=== PATIENT | female | born 1940 | race Caucasian/White ===

== ENCOUNTER 2018-06-03 16:35 | Inpatient (IN) | payer MEDICARE, OTHER, SELFPAY ==
[2018-06-03] VITALS (12 sets, daily range): BP systolic 137–167; BP diastolic 54–75; PULSE 62–90; RESP 15–21; TEMP 36.5–36.7; O2SAT 93–100; BMI 24.9
--- NOTE | 2018-06-03 16:39 | DI.RAD.S_ITS ---
PROCEDURE: XR ANKLE RT MIN 3V INDICATIONS: broken ankle TECHNIQUE: 3 views of the ankle were acquired. COMPARISON: None. FINDINGS: Bones: Complex comminuted distal right tibial and fibular fractures with lateral angulation and distraction of the distal fragments. No involvement of the ankle mortise. Soft tissues: No radiopaque foreign bodies. Soft tissue swelling overlies the fracture site. IMPRESSION: Convex comminuted distal right tibial and fibular fractures with lateral angulation and distraction of the distal fragments. Dictated by: Solitario Woods M.D. on 06/03/2018 at 17:03 Approved by: Solitario Woods M.D. on 06/03/2018 at 17:04
[2018-06-03] MEDS: SODIUM CHLORIDE 0.9% 1,000 ML 1000 ML IV (17:04)
[2018-06-03] MEDS: MORPHINE 2 MG/ML INJ IV (17:04)
[2018-06-03] MEDS: PROPOFOL 200 MG/20 ML VIAL 65 MG IV (17:31)
--- NOTE | 2018-06-03 17:41 | DI.RAD.S_ITS ---
PROCEDURE: XR ANKLE RT 2V INDICATIONS: post reduction TECHNIQUE: 3 views of the ankle were acquired. COMPARISON: [facility], CR, XR ANKLE RT MIN 3V, 06/03/2018, 16:46. FINDINGS: Bones: There is slight interval improved alignment status post closed reduction of comminuted fractures of the distal tibial and fibular shafts. There is persistent lateral displacement of the distal components with decreased lateral angulation. There is slightly increased mild anterior angulation. Soft tissues: There is a new external cast. IMPRESSION: 1. Slightly improved alignment status post closed reduction of comminuted tibial and fibular shaft fractures with decreased lateral angulation but slightly increased anterior angulation. Dictated by: Osvaldo Jordan M.D. on 06/03/2018 at 18:55 Approved by: Osvaldo Jordan M.D. on 06/03/2018 at 18:57
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
[2018-06-03] MEDS: TET,DIPH,PERTUSS(ACELL),VAC/PF 0.5 ML SYRINGE IM (18:34)
[2018-06-03] MEDS: HYDROMORPHONE 0.5 MG INJ 1 MG IV (18:36)
[2018-06-03 20:09] LABS: Add Manual Diff / Slide Review NO; Basophils Percent Auto 0.3 % (0-2); Eosinophils Percent Auto 0.7 % (2-4); Hematocrit 35.9 % (36-46); Hemoglobin 12.1 g/dL (12.0-16.0); Lymphocytes Percent Auto 7.2 % (25-40); Mean Corpuscular HGB Conc 33.7 % (30-36); Mean Corpuscular Hemoglobin 32.1 PG (26-34); Mean Corpuscular Volume 95.5 fL (80-100); Monocytes Percent Auto 5.5 % (3-14); Neutrophils Absolute Auto 10100 /uL (3000-5900); Neutrophils Percent Auto 86.3 % (50-75); Platelet Count 214 X10^3/uL (150-400); Red Blood Cell Count 3.76 X10^6/uL (4.0-5.2); Red Cell Distribution Width 13.3 % (11.6-14.8); White Blood Cell Count 11.7 X10^3/uL (4.5-11.0)
[2018-06-03 20:20] LABS: BUN Creatinine Ratio 25.7 (6-22); Blood Urea Nitrogen 18 mg/dL (7-17); Calcium 8.5 mg/dL (8.4-10.2); Carbon Dioxide 27 mmol/L (22-32); Chloride 108 mmol/L (98-107); Estimated Glomerular Filt Rate > 60.0 mL/min (>60); Glucose 99 mg/dL (80-110); HEMOLYSIS < 15 (0-50); Potassium 3.7 mmol/L (3.4-5.1); Sodium 145 mmol/L (137-145)
[2018-06-03] MEDS: HYDROMORPHONE PCA 6 MG/30 ML PCA.VIAL IV (23:25)
[2018-06-04] VITALS (18 sets, daily range): BP systolic 105–143; BP diastolic 43–67; PULSE 18–80; RESP 10–85; TEMP 36.2–38.5; O2SAT 91–98; BMI 24.9
--- NOTE | 2018-06-04 | DI.CT.S_ITS ---
PROCEDURE: CT LE RT WO CON INDICATIONS: distal tibia fracture TECHNIQUE: Noncontrast 1-1.5 mm axial sections acquired from above the tibiotalar joint to the bottom of the calcaneus, with coronal and sagittal reformats. COMPARISON: None. FINDINGS: Image quality: Excellent. Bones: Comminuted oblique distal tibial diametaphyseal fracture with lateral displacement of the distal dominant fragment measuring approximately one shaft width there is also a comminuted fracture of the distal diaphysis of the fibula, with lateral displacement of the distal fibular fragment. Alignment at the tibiotalar joint appears anatomic. no definite widening of the tibiofibular syndesmosis. Additional nondisplaced hairline fracture seen at the base of the second metatarsal. Incidental chronic cystic changes seen throughout the midfoot. Presumed bone island within the talus. Soft tissues: There is diffuse circumferential subcutaneous edema and stranding IMPRESSION: Severely comminuted, displaced distal tibial and fibular fractures with lateral displacement of the distal fracture fragments as above. Additional nondisplaced hairline fracture seen at the base of the second metatarsal. Associated circumferential hindfoot soft tissue swelling. Dictated by: Sha Fermin M.D. on 06/04/2018 at 10:47 Approved by: Sha Fermin M.D. on 06/04/2018 at 10:55
--- NOTE | 2018-06-04 | DI.RAD.S_ITS ---
PROCEDURE: XR TIBIA FUBULA RT 2V INDICATIONS: tibial fracture TECHNIQUE: 2 views of the tibia and fibula were acquired. COMPARISON: 06/03/2018. FINDINGS: Bones: There is overlying cast material. Persistent convex comminuted oblique distal right tibial and fibular fractures with lateral and proximal distraction of the distal fragments. Soft tissues: No suspicious soft tissue calcifications or masses. IMPRESSION: Persistent complex distal right tibial and fibular fractures with lateral and proximal distraction of the distal fragments. Dictated by: Solitario Woods M.D. on 06/04/2018 at 8:37 Approved by: Solitario Woods M.D. on 06/04/2018 at 8:39
--- NOTE | 2018-06-04 | DI.RAD.S_ITS ---
PROCEDURE: XR FOOT RT MIN 3V INDICATIONS: fracture TECHNIQUE: 3 views of the foot were acquired. COMPARISON: [facility], CT, CT LE RT WO CON, 06/04/2018, 10:18. [facility], CR, XR TIBIA FIBULA RT 2V, 06/04/2018, 7:59. [facility], CR, XR ANKLE RT 2V, 06/03/2018, 17:44. [facility], CR, XR ANKLE RT MIN 3V, 06/03/2018, 16:46. FINDINGS: Evaluation of the osseous structures of the right foot is difficult, related to overlying clothing/splint material. This does result in difficulty evaluating the underlying bones for subtle abnormalities. Fractures of the distal tibia and fibula are not well seen. There appears to be widening of the Lisfranc interval. Degenerative changes of the metatarsophalangeal and tarsometatarsal joints are noted. No radiopaque foreign bodies are evident. IMPRESSION: 1. Apparent widening of the Lisfranc joint. Please correlate clinically for a Lisfranc fracture dislocation. 2. Fractures of the distal tibia and fibula. 3. Degenerative changes of the forefoot joints are more prominent involving the great toe. Dictated by: Fredi Costa M.D. on 06/04/2018 at 10:56 Approved by: Fredi Costa M.D. on 06/04/2018 at 11:02
--- NOTE | 2018-06-04 | DI.RAD.S_ITS ---
PROCEDURE: XR TIBIA FUBULA RT 2V INDICATIONS: POST OP RIGHT TIBIAL NAILING TECHNIQUE: 2 views of the tibia and fibula were acquired. COMPARISON: [facility], CR, XR TIBIA FIBULA RT 2V, 06/04/2018, 14:17. [facility], CR, XR TIBIA FIBULA RT 2V, 06/04/2018, 7:59. FINDINGS: Interval open reduction and internal fixation of the right distal fibular comminuted fracture bilateral buttress plate and transverse screws, as well as interval reduction internal fixation of the right distal tibial fracture by an intramedullary jerrica and both proximal and distal interlocking screws, resulting in improved alignment of the fracture fragments. Cutaneous chris projected over the proximal and distal tibial and there is overlying soft tissue swelling. Subcutaneous emphysema tracks along within the posterior calf. IMPRESSION: Improved alignment of the comminuted distal right fibular and tibial fractures after open reduction and internal fixation. Dictated by: Catrachito Garcia M.D. on 06/04/2018 at 21:12 Approved by: Catrachito Garcia M.D. on 06/04/2018 at 21:14
--- NOTE | 2018-06-04 | DI.RAD.S_ITS ---
PROCEDURE: XR TIBIA FUBULA RT 2V INDICATIONS: RIGHT TIBIAL NAILING TECHNIQUE: 2 views of the tibia and fibula were acquired. COMPARISON: [facility], CR, XR TIBIA FIBULA RT 2V, 06/04/2018, 7:59. FINDINGS: Intraoperative fluoroscopy was provided for the referring clinical service which documents the open reduction and internal fixation of the right distal tibial and fibular fractures by lateral buttress plates and transverse screws, as well as a placement of a right tibial intramedullary jerrica with both proximal and distal interlocking screws. There was interval percutaneous pinning of the tibial fracture fragments. There is overall improved alignment of the fracture fragments. IMPRESSION: Intraoperative fluoroscopy documenting the open reduction and internal fixation of the right distal tibial and fibular fractures as well as right tibial intramedullary jerrica placement. Please refer to the operative note for further details. Dictated by: Catrachito Garcia M.D. on 06/04/2018 at 21:09 Approved by: Catrachito Garcia M.D. on 06/04/2018 at 21:12
[2018-06-04] MEDS: HYDROMORPHONE PCA 6 MG/30 ML PCA.VIAL IV ×2 (06:33→14:24)
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
[2018-06-04] MEDS: LACTATED RINGERS 1,000 ML 42 ML IV ×2 (11:43→17:01)
[2018-06-04] MEDS: ONDANSETRON 4 MG/2 ML INJ IV (11:48)
--- NOTE | 2018-06-04 12:26 | PC.NURSE ---
Addendum entered by Jocelyne Jaime R.N. 06/04/18 14:45: Pt to OR via bed with IV and ABX. Spouse present and aware. IV/BOTTLING ATTENDANT heplocked for transfer. Original Note: Pt to surgery at approx. 1100 and now returned to room with surgery delayed. Pt given Zofran in Preop. No other meds given downstairs and Pt will go back down and directly to the OR when they are ready-expecting to be a couple of hours. IV and BOTTLING ATTENDANT hooked back up to Pt for use. Pt denies needs at this time and agrees to call for assistance as needed. Spouse is at the bedside.
[2018-06-04] MEDS: CEFAZOLIN 2 GM/100 ML FROZ.PIGGY IV ×2 (14:42→18:33)
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
--- NOTE | 2018-06-04 18:21 | SUR.OPER ---
FAMILY UPDATED VIA APARNA SOTO RN
[2018-06-04] MEDS: BUPIVACAINE 0.25% W/ EPI VIAL 30 ML INJ (19:50)
[2018-06-04] MEDS: fentaNYL 100 MCG/2 ML INJ 25 MCG IV ×3 (20:34→20:51)
[2018-06-04] MEDS: hydrOXYzine 50 MG/ML INJ 25 MG IM (20:37)
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
--- NOTE | 2018-06-04 21:57 | P.PN_ITS ---
Subjective Date Patient Seen: 06/04/18 Time Patient Seen: 21:53 Interval history: Postop day 0 Right tibia and fibula ORIF and intramedullary nailing right tibia Exam under anesthesia and closed treatment 2nd metatarsal base fracture Exam Vital Signs (past 8 hours): - 06/04/18 20:12 06/04/18 20:17 06/04/18 20:22 Temperature 97.1 F L Pulse Rate 76 77 78 Respiratory Rate 14 15 15 Blood Pressure 112/43 L 113/46 L 119/57 L Pulse Oximetry 95 94 94 06/04/18 20:27 06/04/18 20:42 06/04/18 20:57 Temperature Pulse Rate 74 71 70 Respiratory Rate 16 16 10 L Blood Pressure 117/44 L 133/61 140/61 Pulse Oximetry 96 93 94 06/04/18 21:02 06/04/18 21:28 06/04/18 21:50 Temperature 98.9 F 100.3 F H Pulse Rate 76 18 L 70 Respiratory Rate 11 L 85 H 18 Blood Pressure 143/49 H 105/55 L 125/59 L Pulse Oximetry 95 94 95 Fraction of Inspired Oxygen 21 Oxygen Delivery Method Nasal Cannula Oxygen Flow Rate 4 Objective Labs Result Diagrams: 06/03/18 20:00 06/03/18 20:00 Assessment & Plan Post-op Postoperative Procedures Operation Date: 06/04/18 12:00 Actual Procedures Side Surgeon p intermedullary nailing right tibial/fibula fracture, exam under anesthesia right foot Right Velia Sahu MD Plan: 1. Right lower extremity toe-touch or flatfoot weight-bearing (for balance only ) 2. Start Lovenox postop day 1--40 mg Lovenox daily times 14 days 3. Follow-up with Dr. Sahu at [facility] in 1 week for wound check 4. Work with physical therapy and occupational therapy. If doing well and completed her postop antibiotics may discharge home possibly tomorrow. Otherwise anticipate discharge Friday/based on medical recovery. 5. Patient displayed low tolerance for narcotics preoperatively--will start with [place] for pain management 1-2 tablets if she needs something stronger may move up but go slow 6. Colace for bowel regimen 7. SCDs on left while in the hospital Quality VTE Deep Vein Thrombosis/Pulmonary Embolism Present on Admission: No
[2018-06-05] VITALS (9 sets, daily range): BP systolic 100–156; BP diastolic 56–73; PULSE 69–81; RESP 16–18; TEMP 36.6–36.9; O2SAT 92–98
[2018-06-05] MEDS: LACTATED RINGERS 1,000 ML 125 ML IV ×2 (01:28→06:30)
[2018-06-05] MEDS: CEFAZOLIN 2 GM/100 ML FROZ.PIGGY IV ×2 (02:47→10:21)
[2018-06-05 05:30] LABS: Hematocrit 28.9 % (36-46); Mean Corpuscular HGB Conc 34.5 % (30-36); Mean Corpuscular Hemoglobin 32.9 PG (26-34); Mean Corpuscular Volume 95.2 fL (80-100); Platelet Count 162 X10^3/uL (150-400); Red Blood Cell Count 3.03 X10^6/uL (4.0-5.2); Red Cell Distribution Width 12.7 % (11.6-14.8); White Blood Cell Count 7.3 X10^3/uL (4.5-11.0)
[2018-06-05] MEDS: HYDROCODONE/ACET 5/325 TABLET 1 TAB PO ×2 (06:37→21:56)
--- NOTE | 2018-06-05 08:24 | PC.NURSE ---
Addendum entered by Michelle Bhatt R.N. 06/05/18 12:31: PAIN - at lunch, given tramadol 50mg po for pain 2 on scale 0/10 for afternoon phys therapy. Original Note: AM NOTE - alert, sitting upright speaking to spouse at bedside, states pain 1 on scale 0/10, does not like how the earlier norco made her feel, discussed medications, dosages, rle elev pillow support, splint, w/tanisha wrap over cdi, + sensation and toes are pink, able wiggle easily, ra 94%, denies nausea and feels hungry this am, has passed a little flatus.
[2018-06-05] MEDS: DOCUSATE 100 MG CAPSULE PO ×2 (09:08→21:56)
[2018-06-05] MEDS: ENOXAPARIN 40 MG/0.4 ML SYRINGE SUBCUT (09:08)
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
--- NOTE | 2018-06-05 10:27 | PM.PNPO.1 ---
Subjective Date Patient Seen: 06/05/18 Interval history: Patient seen bedside s/p R. tibial nail with ORIF r. ankle POD #[address] Sahu. Patient is doing well, she complains of right knee and groin pain. She denies CP, SOB, or N/V. Pain is well controlled, but does not like the side effects of the hydrocodone/APAP. Exam Vital Signs (past 8 hours): - 06/05/18 04:38 06/05/18 07:45 06/05/18 09:35 Temperature 98.0 F 97.9 F Pulse Rate 78 77 Respiratory Rate 16 16 Blood Pressure 100/73 133/57 L Pulse Oximetry 98 97 94 Fraction of Inspired Oxygen 21 Oxygen Delivery Method Room Air Oxygen Flow Rate 4 Narrative Exam Narrative: WDWN NAD A&Ox4. RLE splint is clean dry and intact with no visible drainage. Cap refill <2sec and patient is NVI in this extremity. Objective Labs Result Diagrams: 06/05/18 05:16 06/03/18 20:00 Labs: Laboratory Results - last 24 hr 06/05/18 05:16 WBC 7.3 RBC 3.03 L Hgb 10.0 L Hct 28.9 L MCV 95.2 MCH 32.9 MCHC 34.5 RDW 12.7 Plt Count 162 Assessment & Plan Post-op Postoperative Procedures Operation Date: 06/04/18 12:00 Actual Procedures Side Surgeon p intermedullary nailing right tibial/fibula fracture, exam under anesthesia right foot Right Velia Sahu MD 1. Continue with PT 2. Toe touch WB only for balance/transfer 3. Switch pain medication to tramadol to see if side effects are more tolerable 4. D/c home in AM. Quality VTE Deep Vein Thrombosis/Pulmonary Embolism Present on Admission: No
[2018-06-05] MEDS: TRAMADOL 50 MG TABLET PO ×2 (12:27→17:10)
--- NOTE | 2018-06-05 15:49 | PT.IPTN ---
Current Diagnoses Unspecified fracture of lower end of right tibia, initial encounter for closed fracture (06/03/18) Surgery Performed Operation Date: 06/04/18 12:00 Actual Procedures p intermedullary nailing right tibial/fibula fracture, exam under anesthesia right foot(Right) - Velia Sahu MD Physical Therapy Treatment Note M2 PT-IP Current Condition Start: 06/05/18 12:19 Freq: NEEDED Status: Active Protocol: Document 06/05/18 09:41 MDD (Rec: 06/05/18 12:30 MDD [id number]) Physical Therapy Current Condition Current Condition Evaluation Date 06/05/18 Treatment Diagnosis s/p R ankle ORIF Onset Date 06/04/18 Precautions Other Precautions perez catheter Weight Bearing Status Weight Bearing Status Touch Down Weight Bearing Allowed Weight Bearing Amount (enter % *only for balance with or #) (%) transfers M3 PT-IP Subjective Start: 06/05/18 12:19 Freq: NEEDED Status: Active Protocol: Document 06/05/18 15:49 MDD (Rec: 06/05/18 16:51 MDD [email or web address]) Subjective Physical Therapy Visit Type Type Treatment Note Visit Start Time 15:06 Visit Stop Time 15:49 Total Visit Minutes 43 Notes Pt's went to [facility] this am and got a shower chair, w/c and FWW. Number of ASSISTANT TEACHING PROFESSOR Visits 0 Therapy Pain Assessment Pain When Pain Assessed At Rest Pain Present Pain Present Denied Pain M4 PT-IP Mobility and Gait Start: 06/05/18 12:19 Freq: NEEDED Status: Active Protocol: Document 06/05/18 15:49 MDD (Rec: 06/05/18 16:51 MDD [id number]) PT-Bed Mobility Assessment Rolling Type of Rolling Roll to Left Level of Assist Independent Supine to Sit Supine to Sit Standby Assistance Bedrails Sit to Supine Sit to Supine Independent Scooting Scooting to Edge of Bed Independent Scooting Up and Down in Bed Independent PT-Transfer Assessment Sit to and From Stand Sit to and from Stand Contact Guard Assistance Equipment Transfer Assistive Device Gait Belt Front Wheeled Walker Transfers Transfer Destination Wheelchair Transfer Technique Stand Step Pivot Transfer Ability Level of Assist Contact Guard Assistance Comments Mobility Comments Pt demonstrating good compliance with TTWB during transfers, needs some cueing for walker placement. Stair Climbing Assessment Evaluation Level of Assist On Stairs Contact Guard Assistance Devices Stair Climbing Assistive Devices Axillary Crutches Left Railing Technique/Endurance Stair Climbing Direction Ascend and Descend Stair Climbing Technique Step to Step Number of Steps Climbed 3 Query Text: Stair Climbing Set # Repetitions (reps) 1 Comments Stair Climbing Comments Pt able to do steps with CGA using single crutch and L railing. She may be placing a little too much weight on R LE, but was unable today to attempt with NWB. PT-Balance Assessment Sitting Balance and Reactions Static Sitting Balance Ability Normal Dynamic Sitting Balance Ability Normal Standing Balance and Reactions Static Standing Balance Ability Good Dynamic Standing Balance Ability Fair M5 PT-IP Objective Assessments Start: 06/05/18 12:19 Freq: NEEDED Status: Active Protocol: Document 06/05/18 09:41 MDD (Rec: 06/05/18 12:30 MDD [id number]) Orientation Orientation/Cognition Level of Alertness Alert Orientation Name Age Birthday Month Date Year Day of Week Place Situation Language Function Ability No Deficits Noted Safety Awareness Understands Safety Issues Memory Description No Deficits Noted Gross Range of Motion Lower Extremity ROM Assessment Within Functional Limits Strength Lower Extremity Strength Assessment Within Functional Limits Coordination Assessment Gross Coordination Gross Coordination WNL Sensation Assessment Sensation Gross Sensation WNL Light Touch Intact M6 PT-IP Treatment Start: 06/05/18 12:19 Freq: NEEDED Status: Active Protocol: Document 06/05/18 15:49 MDD (Rec: 06/05/18 16:51 MDD [email or web address]) Physical Therapy Treatment Education Education Provided Weight Bearing Status Safety M7 PT-IP Assessment and Plan Start: 06/05/18 12:19 Freq: NEEDED Status: Active Protocol: Document 06/05/18 15:49 MDD (Rec: 06/05/18 16:51 MDD [email or web address]) PT Summary Assessment and Plan Potential Rehabilitation Potential Good Status of Condition at Evaluation Stable Summary Impairments Pain Bed Mobility Transfers Gait Activity Tolerance Progress Towards Goals Progressing Toward Goals Assessment Summary Pt demonstrates good LE strength and balance maintaining TTWB R LE during transfers this day with CGA. She did require some assist for bed mobility d/t pain in R knee/ankle. She should benefit from continued inpatient therapy to maximize function prior to d/c home. If she demonstrates ability to safely ascend/descend steps while maintaining WB status, will likely be safe to d/c home with proper acquisition of appropriate DME. Goals Bed Mobility Goal Independent Transfer Goal Independent Gait Goal Independent Gait Distance 5 feet Other Goals Ascend/descend 4 steps with single crutch and single railing. Days to Meet Goals 2 Frequency of Treatment Frequency Of Treatment Twice a Day Treatment Plan Physical Therapy Treatment Plan Bed Mobility Training Transfer Training Gait Training Therapeutic Exercise Other Recommendations and Next Treatment Trial stairs using single Focus crutch and railing. Recommendations To Nursing Amount of Assist Needed 1 Person Assist Discharge Recommendations PT Discharge Recommendations Home with Assistance Equipment Needed for Home Before Pt will need a FWW, shower Discharge chair and W/C for safe d/c home. Discussed with her who will be going to [facility] today to see what he can get. Will plan on dispensing crutches in hospital.
--- NOTE | 2018-06-05 21:02 | PC.NURSE ---
Patient refused perez catheter removal; This RN did not remove. Patient states she'd be willing to try to have it removed tomorrow AM.
[2018-06-06 05:03] VITALS: BP 139/61; PULSE 68; RESP 16; TEMP 36.3; O2SAT 90
[2018-06-06 07:30] VITALS: BP 147/66; PULSE 71; RESP 18; TEMP 36.6; O2SAT 93
--- NOTE | 2018-06-06 07:39 | PM.DS.1 ---
History of Present Illness Date Patient Seen: 06/06/18 Chief complaint: Rt broken manuelitoel Narrative: Patient was seen status post tibial nailing and ORIF for right ankle postop day 2. She is doing well her pain is well controlled. She is tolerating the tramadol better than the hydrocodone. She is ready for discharge. She did have some current concerns about some seepage through the splint. Discharge Providers Date of admission: 06/03/18 18:25 Primary care physician: Andres Pascual MD Consults: 06/03/18 20:03 Consult to Orthopedic Surgery Routine Comment: Consulting Provider: Arelis Samuels Reason for consultation: admission, surgery Has provider been notified: Yes 06/04/18 18:09 Consult to Respiratory Therapy Evaluate & Treat Comment: Physician Instructions: Evaluate and treat 06/04/18 21:43 Consult to Discharge Planning Routine Comment: Consult to Physical Therapy Evaluate & Treat Comment: RLE flat foot for balance or TTWB Physician Instructions: Evaluate and Treat Consult to Respiratory Therapy Evaluate & Treat Comment: Physician Instructions: Evaluate and treat Discharge provider: Janeth Li PA-C Summary Discharge Diagnosis: Right ankle fracture Hospital Course: Patient was admitted to the hospital after sustaining a distal tibia fracture as well as a lateral malleolus fracture. She was taken to the OR on 06/04/2018 for tibial nailing and ORIF of the fibula. Patient tolerated the procedure well with no complications. She was then transitioned back to the acute care floor and seen by Physical therapy who recommended she be discharged home. Patient stable ready for discharge on 06/06/2018. Status at Discharge Cognitive/behavioral status at discharge: Alert and oriented x4 Functional status at discharge: uses cane/walker Overall status at discharge: patient is progressing back to baseline Time Spent with Patient Less than 30 minutes Exam Vital Signs (past 8 hours): - 06/06/18 05:03 Temperature 97.3 F L Pulse Rate 68 Respiratory Rate 16 Blood Pressure 139/61 Pulse Oximetry 90 L Fraction of Inspired Oxygen 21 Oxygen Delivery Method Room Air Oxygen Flow Rate 0 Narrative Exam Narrative: Well-developed well-nourished no acute distress. Alert and oriented x3. Right ankle splint is intact with some mild bleeding at the heel. Ede bandage was removed area reinforced with ABD pads and then rewrapped with an Ede. She is neurovascularly intact in this extremity she has full range of motion of the knee. Objective Labs Result Diagrams: 06/05/18 05:16 06/03/18 20:00 Discharge Plan Discharge Plan Patient Disposition: Home Provider Discharge Instructions Diet: Diet as Tolerated Activity: Nonweightbearing on affected ankle. Use crutches, walker, or rolling knee walker to ambulate. Cold/Heat Therapy: Apply ice for 20 minutes at a time to surgical site at least hourly while awake. Skin/Wound/Dressing Care Report to your healthcare provider any signs of infection, such as:: chills, fever, night sweats, increased pain and unusual drainage Dressing: Keep splint on and clean, dry, and intact. Discharge Data Primary Care Provider: Andres Pascual Attending Provider: Arelis Samuels Admit Date/Time: 06/03/18 18:25 Quality VTE Deep Vein Thrombosis/Pulmonary Embolism Present on Admission: No
[2018-06-06] MEDS: TRAMADOL 50 MG TABLET PO (07:53)
[2018-06-06] MEDS: DOCUSATE 100 MG CAPSULE PO (07:54)
--- NOTE | 2018-06-06 08:14 | PC.NURSE ---
Addendum entered by Mihcelle Bhatt R.N. 06/06/18 12:22: /DC - pt ambul br voided, hat missed, adequate output observed, ret chair for quick lunch, reviewed the dc instructions, scripts and paperwork provided, belongings gathered, no items in pharmacy or safe, tsf to wc, and sensory scientist escorted to spouse's car. Original Note: Addendum entered by Michelle Bhatt R.N. 06/06/18 09:58: INTEG/DC - pt has leakage of serosang medially thru tanisha wrap, Janeth WATT in and removed tanisha wrap, reinforced with abd pads and rewrapped, instructions were provided to pt, spouse for care at home, abd pads and tanisha wrap provided for weekend, lovenox instructions provided and pt demonstrated own injection. Original Note: AM NOTE - alert, reading, req pain medication, discussed meds and prefers tramadol this am and given 50mg w/yogurt and crackers, discussed perez cath, agreed to removal, balloon deflated and dc'd w/o difficulty, addressed constipation and narcotics, laxatives here and at home, given colace and prune juice this am, ra 92%, enc freq use IS, rle elev w/pillow support, tanisha wrap over splint cdi, toes pink and wiggles easily, + sensation.
[2018-06-06 08:19] VITALS: O2SAT 92
[2018-06-06] MEDS: ENOXAPARIN 40 MG/0.4 ML SYRINGE SUBCUT (09:52)
--- NOTE | 2018-06-06 10:45 | PT.IPTN ---
Current Diagnoses Unspecified fracture of lower end of right tibia, initial encounter for closed fracture (06/03/18) Surgery Performed Operation Date: 06/04/18 12:00 Actual Procedures p intermedullary nailing right tibial/fibula fracture, exam under anesthesia right foot(Right) - Velia Sahu MD Physical Therapy Treatment Note M2 PT-IP Current Condition Start: 06/05/18 12:19 Freq: NEEDED Status: Active Protocol: Document 06/05/18 09:41 MDD (Rec: 06/05/18 12:30 MDD [id number]) Physical Therapy Current Condition Current Condition Evaluation Date 06/05/18 Treatment Diagnosis s/p R ankle ORIF Onset Date 06/04/18 Precautions Other Precautions perez catheter Weight Bearing Status Weight Bearing Status Touch Down Weight Bearing Allowed Weight Bearing Amount (enter % *only for balance with or #) (%) transfers M3 PT-IP Subjective Start: 06/05/18 12:19 Freq: NEEDED Status: Active Protocol: Document 06/06/18 10:45 GGD (Rec: 06/06/18 12:29 GGD [id number]) Subjective Physical Therapy Visit Type Type Treatment Note Visit Start Time 10:00 Visit Stop Time 10:45 Total Visit Minutes 45 Number of PHOTO TUBE ASSEMBLER Visits 1 Physical Therapy Visit Comments Patient Comments Pt states she hopes to go home today. Therapy Pain Assessment Pain When Pain Assessed At Rest Pain Present Pain Present Denied Pain M4 PT-IP Mobility and Gait Start: 06/05/18 12:19 Freq: NEEDED Status: Active Protocol: Document 06/06/18 10:45 GGD (Rec: 06/06/18 12:29 GGD [id number]) PT-Bed Mobility Assessment Rolling Type of Rolling Roll to Left Level of Assist Independent Supine to Sit Supine to Sit Standby Assistance Bedrails Sit to Supine Sit to Supine Independent Scooting Scooting to Edge of Bed Independent Scooting Up and Down in Bed Independent PT-Transfer Assessment Sit to and From Stand Sit to and from Stand Contact Guard Assistance Equipment Transfer Assistive Device Gait Belt Front Wheeled Walker Transfers Transfer Destination Wheelchair Transfer Technique Stand Step Pivot Transfer Ability Level of Assist Contact Guard Assistance Comments Mobility Comments PT needs cueing for walker placement. Stair Climbing Assessment Evaluation Level of Assist On Stairs Contact Guard Assistance Devices Stair Climbing Assistive Devices Axillary Crutches Left Railing Technique/Endurance Stair Climbing Direction Ascend and Descend Stair Climbing Technique Step to Step Number of Steps Climbed 3 Query Text: Stair Climbing Set # Repetitions (reps) 1 Comments Stair Climbing Comments Pt needed cues for stair training. She was unable to do NWB. M5 PT-IP Objective Assessments Start: 06/05/18 12:19 Freq: NEEDED Status: Active Protocol: Document 06/05/18 09:41 MDD (Rec: 06/05/18 12:30 MDD [id number]) Orientation Orientation/Cognition Level of Alertness Alert Orientation Name Age Birthday Month Date Year Day of Week Place Situation Language Function Ability No Deficits Noted Safety Awareness Understands Safety Issues Memory Description No Deficits Noted Gross Range of Motion Lower Extremity ROM Assessment Within Functional Limits Strength Lower Extremity Strength Assessment Within Functional Limits Coordination Assessment Gross Coordination Gross Coordination WNL Sensation Assessment Sensation Gross Sensation WNL Light Touch Intact M6 PT-IP Treatment Start: 06/05/18 12:19 Freq: NEEDED Status: Active Protocol: Document 06/06/18 10:45 GGD (Rec: 06/06/18 12:29 GGD [id number]) Physical Therapy Treatment Exercises Exercises Gluteal Sets Quad Sets Straight Leg Raises Seated Knee Flexion/Extension Education Education Provided Weight Bearing Status Safety Equipment Issued Equipment Type and Company crutches Other Treatments Other Treatment Performed Hip abd with Level 1 band, hip add pillow squeeze M7 PT-IP Assessment and Plan Start: 06/05/18 12:19 Freq: NEEDED Status: Active Protocol: Document 06/06/18 10:45 GGD (Rec: 06/06/18 12:29 GGD [id number]) PT Summary Assessment and Plan Summary Assessment Summary Pt was safe with bed mobility and transfers. She unable to maintain TTWB with stairs. She would benifit from continue threapy to progress stair training with TTWB. Frequency of Treatment Frequency Of Treatment Twice a Day Treatment Plan Physical Therapy Treatment Plan Bed Mobility Training Transfer Training Gait Training Therapeutic Exercise Other Recommendations and Next Treatment Trial stairs using single Focus crutch and railing. Recommendations To Nursing Amount of Assist Needed 1 Person Assist Discharge Recommendations PT Discharge Recommendations Home with Assistance
--- NOTE | 2018-06-06 15:42 | CM.DPC ---
DC Note: Pt cleared for return home w/supportive spouse today, pt eager to get home. Aware and agreeable to DCP. No barriers to safe DC home. JW
== END 2018-06-06 12:45 | disposition home or self-care (01) | DRG 494 ==
LOC: ED 18:15 → AC 18:26
PROVIDERS: Orthopaedic Surgery Foot and Ankle Surgery; Admitting Provider Orthopaedic Surgery; Emergency Provider Emergency Medicine; PCP Internal Medicine; Visit Provider Orthopaedic Surgery
PROC: 0QSG06Z Reposition Right Tibia with Intramedullary Internal Fixation Device, Open Approach (ICD-10-PCS; CPT 27759; principal; 2018-06-04 12:00)
DX: M80.071A Age-related osteoporosis with current pathological fracture, right ankle and foot, initial encounter for fracture (principal); M80.061A Age-related osteoporosis with current pathological fracture, right lower leg, initial encounter for fracture; Y92.814 Boat as the place of occurrence of the external cause; E78.5 Hyperlipidemia, unspecified
CPT/HCPCS: 27825; 36415; 73590; 73600; 73610; 73630; 73700; 76001; 80048; 85025; 85027; 90471; 93005; 93010; 94760; 94770; 96361; 96374; 96375; 97116; 97161; 97530; 99152; 99284; 99285; 90715; J0690; J1100; J1170; J1650; J2250; J2270; J2405; J2704; J3010; J3410

== ENCOUNTER → 2019-03-11 10:04 | Outpatient (CLI) | payer MEDICARE, OTHER, SELFPAY ==
[2018-06-03 18:27] VITALS: BMI 24.9
[2019-03-11 11:54] LABS: BUN Creatinine Ratio 23.8 (6-22); Blood Urea Nitrogen 19 mg/dL (7-17); Calcium 9.3 mg/dL (8.4-10.2); Carbon Dioxide 27 mmol/L (22-32); Chloride 104 mmol/L (98-107); Cholesterol 188 mg/dL (140-199); Estimated Glomerular Filt Rate > 60.0 mL/min (>60); Glucose 86 mg/dL (80-110); HDL Cholesterol 55 mg/dL (40-60); HEMOLYSIS 24 (0-50); LDL Cholesterol Calculated 101 mg/dL (<100); Potassium 4.3 mmol/L (3.4-5.1); Sodium 140 mmol/L (137-145); Triglycerides 158 mg/dL (35-150)
== END ==
PROVIDERS: PCP Internal Medicine; Visit Provider Internal Medicine
DX: E78.2 Mixed hyperlipidemia (principal); R03.0 Elevated blood-pressure reading, without diagnosis of hypertension
CPT/HCPCS: 36415; 80048; 80061

== ENCOUNTER → 2019-03-17 08:55 | Outpatient (CLI) | payer MEDICARE, OTHER, SELFPAY ==
[2018-06-03 18:27] VITALS: BMI 24.9
--- NOTE | 2019-03-17 | DI.MG.S_ITS ---
BILATERAL DIGITAL SCREENING MAMMOGRAM 3D/2D WITH CAD POST LUMPECTOMY: 03/17/2019 CLINICAL: Routine screening. Personal history of left breast cancer. Family history of breast cancer. Comparison is made to exams dated: 01/24/2018 mammogram, 12/17/2016 mammogram, and 12/15/2015 mammogram - [facility]. There are scattered fibroglandular elements in both breasts. Current study was also evaluated with a Computer Aided Detection (CAD) system. There are benign post operative findings in the left breast. No significant masses, calcifications, or other findings are seen in either breast. There has been no significant interval change. IMPRESSION: There is no mammographic evidence of malignancy. A 1 year screening mammogram is recommended. This exam was interpreted at Station ID: [id number]. NOTE: For mammograms, a report in lay terms will be sent to the patient. Approximately 15% of breast malignancies will not be visualized mammographically. In the management of a palpable breast mass, a negative mammogram must not discourage biopsy of a clinically suspicious lesion. Electronically Signed By: Osvaldo schaeffer/bailee:03/17/2019 16:40:02 letter sent: Normal Exam ACR BI-RADS Category 2: Benign Finding(s) [id number]
== END ==
PROVIDERS: PCP Internal Medicine; Visit Provider Internal Medicine
DX: Z12.31 Encounter for screening mammogram for malignant neoplasm of breast (principal); Z85.3 Personal history of malignant neoplasm of breast; Z80.3 Family history of malignant neoplasm of breast; M81.0 Age-related osteoporosis without current pathological fracture; Z78.0 Asymptomatic menopausal state
CPT/HCPCS: 77063; 77067; 77080

== ENCOUNTER 2019-09-15 14:39 | Emergency (ER) | payer MEDICARE, OTHER, SELFPAY ==
[2018-06-03 18:27] VITALS: BMI 24.9
[2019-09-15 14:41] VITALS: BP 183/77; PULSE 66; RESP 20; TEMP 36.7; O2SAT 100
[2019-09-15 14:50] VITALS: BP 183/77; PULSE 66; RESP 20; TEMP 36.7; O2SAT 100
--- NOTE | 2019-09-15 15:04 | DI.CT.S_ITS ---
PROCEDURE: CT HEAD/BRAIN WO CON INDICATIONS: memory issues, foggy TECHNIQUE: Noncontrast 4.5 mm thick angled axial sections acquired from the foramen magnum to the vertex, with coronal and sagittal reformats. For radiation dose reduction, the following was used: automated exposure control, adjustment of mA and/or kV according to patient size. COMPARISON: None. FINDINGS: Image quality: Excellent. CSF spaces: Basal cisterns are patent. No extra-axial fluid collections. Ventricles are normal in size and shape. Brain: No midline shift. No intracranial masses or hemorrhage. Mcdaniels-white matter interface is normal. Mild periventricular hypodensity most consistent with chronic microvascular ischemic change. Skull and face: Calvarium and visualized facial bones are intact, without suspicious lesions. Sinuses: Visualized sinuses and mastoids are clear. IMPRESSION: No acute intracranial abnormality. Periventricular hypodensities most compatible with mild chronic microvascular ischemic change. Comment: Findings were discussed with Yazmin Velasquez at the time of dictation. Dictated by: Bert Clarke M.D. on 09/15/2019 at 15:21 Approved by: Bert Clarke M.D. on 09/15/2019 at 15:24
--- NOTE | 2019-09-15 15:04 | DI.RAD.S_ITS ---
PROCEDURE: XR CHEST 1V INDICATIONS: foggy, memory issues TECHNIQUE: One view of the chest was acquired. COMPARISON: None. FINDINGS: Surgical changes and devices: Surgical clips in the left axilla and left breast. Lungs and pleura: The coarse interstitial markings diffusely. Lungs are otherwise clear. No pleural effusions or pneumothorax. Mediastinum: Mediastinal contours appear normal. Heart size is normal. Bones and chest wall: No suspicious bony lesions. Overlying soft tissues appear unremarkable. IMPRESSION: 1. Diffusely coarse interstitial markings without other findings of central venous congestion. This may represent fibrotic or emphysematous change. 2. No acute process. Dictated by: Ngozi Jean M.D. on 09/15/2019 at 16:34 Approved by: Ngozi Jean M.D. on 09/15/2019 at 16:35
--- NOTE | 2019-09-15 15:16 | ED.NEUROSD ---
HPI - Neuro Symptoms/Deficit General Chief Complaint: Neuro Symptoms/Deficit Stated Complaint: sudden loss of memory Time Seen by Provider: 09/15/19 15:04 Source: patient and family Mode of arrival: Ambulatory Limitations: no limitations History of Present Illness HPI Narrative: This is a 79-year-old female, who comes to the emergency department with a complaint of since she a vague feeling that she could not remember what to do. Patient states she was at a jain meeting, she felt like everything was vague is how she describes it. She states that she was able drive, she is able turn off her alarm to get in her house she was able to call her and let him know something did seem right. She states she waited several hours but felt like it did not resolve. She describes it as not so much a loss of memory as having trouble deciding what to do for Hans, having trouble deciding how or what to look for dinner or how to transport and deliver some point as. They all are described as short-term tasks that she is having trouble figuring out how to resolve but she is able to do other tasks without issue. She denies headache, no vision changes, no issues with word loss or expressive aphasia, no numbness, no weakness, no chest pain or shortness of breath. No nausea, no vomiting no issues with bowel movements or urination. Patient takes medication for cholesterol, no aspirin daily. No history of strokes or TIAs. She had a fracture to her right leg with jerrica and hardware placed. No tobacco, occasional line none today. No illicit. Dr. Mace is his primary care. Patient is , at bedside and states that she does not seem to have memory issues so much is trouble making decisions about task that she want to perform. On Anticoagulants: No Related Data Home Medications Medication Instructions Recorded Confirmed Calcium Source 1,500 mg PO DAILY 09/15/19 09/15/19 cholecalciferol (vitamin D3) 1,000 unit PO DAILY 09/15/19 09/15/19 [Vitamin D3] raloxifene 60 mg PO DAILY 09/15/19 09/15/19 simvastatin 20 mg PO QPM 09/15/19 09/15/19 Previous Rx's Medication Instructions Recorded cephalexin [Keflex] 500 mg PO BID #10 cap 09/15/19 Allergies Allergy/AdvReac Type Severity Reaction Status Date / Time No Known Drug Allergies Allergy Verified 02/09/18 10:56 Review of Systems Review of Systems ROS Unobtainable: All systems reviewed & are unremarkable except as noted in HPI and below Patient History Medical History (Updated 09/15/19 @ 17:09 by Yazmin Velasquez DO) Dyslipidemia (Acute) Healthy adult (Acute) Social History household members: spouse Smoking Status: Never smoker Smoking Status: Never smoker alcohol intake frequency: holidays/special occasions only Substance Use Type: does not use Exam Narrative Exam Narrative: GEN: well nourished, well appearing female, alert and oriented x 3, patient appears to be in mild distress. patient is slightly anxious. HEENT: Atraumatic, pupils are equal round reactive to light, extraocular movements are intact, nares are clear, TMs are clear with no fluid, there is no conjunctival pallor. Throat is clear without any exudates, erythema, tonsillar enlargement or uvular deviation, no facial droop. HEART: Regular rate and rhythm without murmur, clicks, rubs. No carotid bruits, pulses are equal in upper and lower extremities LUNGS:Lungs clear to auscultation, no wheezes, rales, crackles, chest moves symmetrically ABD:bowel sounds normal, soft, non-tender, no guarding, rebound, rigidity, no masses noted, no hepatosplenomegaly :No CVA tenderness MSCL: Non-tender, no muscle atrophy, muscles strength 5/5 upper and lower extremities, full range of motion, normal gait NEURO:CN 2-12 intact, sensation normal, reflexes 2/4 upper and lower extremities. finger nose finger test normal, heel fisher test normal. SKIN: no rash, no petechiae. Initial Vital Signs Initial Vital Signs: Vital Signs Temperature 98.1 F 09/15/19 14:41 Pulse Rate 66 09/15/19 14:41 Respiratory Rate 20 09/15/19 14:41 Blood Pressure 183/77 H 09/15/19 14:41 Pulse Oximetry 100 09/15/19 14:41 Scores NIH Stroke Scale Level of Conciousness: Alert, keenly responsive Ask month/age: Answers both questions correctly. Open/close eyes, close hand: Performs both tasks correctly Best gaze horizontal: Normal Visual pandya: No visual loss Facial palsy: Normal symetrical movement Left arm drift: No drift for full 10 sec Right arm drift: No drift for full 10 sec Left leg drift: No drift for full 10 sec Right leg drift: No drift for full 10 sec Limb ataxia: Absent Sensory on face/arms/legs: Normal, no sensory loss Best language: No aphasia, normal Dysarthria: Normal Extinction or inattention: No abnormality Total NIH Stroke scale score: 0 Course Orders Ordered: ED Orders 09/15/19 15:04 CT head/brain wo con Stat XR chest 1V Stat 09/15/19 15:24 Basic Metabolic Panel Stat Complete Blood Count AUTO DIFF Stat Partial Thromboplastin Time Stat Prothrombin Time INR Stat 09/15/19 15:50 Urine Culture Stat Urine Drug Screen, Rapid Stat Urine Microscopic Stat 09/15/19 15:54 CT angio head and neck Stat Discontinued Medications Aspirin (Aspirin Chew) 324 mg PO NOW ONE Stop: 09/15/19 15:41 Last Admin: 09/15/19 16:29 Dose: 324 mg Documented by: MIKE Sodium Chloride (Normal Saline 0.9%) 1,000 mls @ 150 mls/hr IV CONT ROSA Last Admin: 09/15/19 16:29 Dose: 150 mls/hr Documented by: MIKE Vital Signs Vital signs: Vital Signs - 8 hr 09/15/19 14:41 09/15/19 14:50 09/15/19 15:17 Temperature 98.1 F 98.1 F Pulse Rate 66 66 64 Respiratory Rate 20 20 17 Blood Pressure 183/77 H 183/77 H Blood Pressure [Right Arm] 153/68 H Pulse Oximetry 100 100 99 09/15/19 16:00 09/15/19 16:30 09/15/19 17:00 Temperature Pulse Rate 58 L 54 L 53 L Respiratory Rate 13 19 19 Blood Pressure Blood Pressure [Right Arm] 148/65 H 165/76 H 171/80 H Pulse Oximetry 98 96 MDM - Neuro Symptoms/Deficit Lab Data Attestation: I reviewed the patient's lab results. Result diagrams: 09/15/19 15:24 09/15/19 15:24 Labs: Lab Results 09/15/19 09/15/19 09/15/19 Range/Units 15:24 15:24 15:24 WBC 7.0 (4.5-11.0) X10^3/uL RBC 3.95 L (4.0-5.2) X10^6/uL Hgb 12.7 (12.0-16.0) g/dL Hct 37.0 (36-46) % MCV 93.5 (80-100) fL MCH 32.3 (26-34) PG MCHC 34.5 (30-36) % RDW 13.4 (11.6-14.8) % Plt Count 254 (150-400) X10^3/uL Neut % (Auto) 72.5 (50-75) % Lymph % (Auto) 17.1 L (25-40) % [place] % (Auto) 6.7 (3-14) % Eos % (Auto) 3.1 (2-4) % Baso % (Auto) 0.6 (0-2) % Neut # (Auto) 5100 (2770-5151) /uL Lymph # (Auto) 1200 (2250-5860) /uL [place] # (Auto) 500 (0-900) /uL Eos # (Auto) 200 (0-450) /uL Baso # (Auto) 0 (0-100) /uL PT 10.9 (10.1-12.7) SECONDS INR 1.0 (0.9-1.3) APTT 29 (26.4-36.2) SECONDS Sodium 141 (137-145) mmol/L Potassium 3.8 (3.4-5.1) mmol/L Chloride 104 (98-107) mmol/L Carbon Dioxide 27 (22-32) mmol/L BUN 20 H (7-17) mg/dL Creatinine 0.80 (0.52-1.04) mg/dL Estimated GFR > 60.0 (>60) mL/min BUN/Creatinine Ratio 25.0 H (6-22) Glucose 137 H (80-110) mg/dL Calcium 9.1 (8.4-10.2) mg/dL Urine RBC (0-5/HPF) Urine WBC (0-5/HPF) Ur Squamous Epith Cells (0-5/HPF) Urine Bacteria (None) Ur Culture Indicated? U Morph 300 ng/mL cutoff (Negative) Ur Oxycodone Screen (Negative) Urine Methadone Screen (Negative) Ur Barbiturates Screen (Negative) U Tricyclic Antidepress (Negative) Ur Phencyclidine Scrn (Negative) Ur Amphetamines Screen (Negative) U Methamphetamines Scrn (Negative) Ur MDMA Scrn (Ecstasy) (Negative) U Benzodiazepines Scrn (Negative) Urine Cocaine Screen (Negative) U Marijuana (THC) Screen (Negative) 09/15/19 09/15/19 Range/Units 15:50 15:50 WBC (4.5-11.0) X10^3/uL RBC (4.0-5.2) X10^6/uL Hgb (12.0-16.0) g/dL Hct (36-46) % MCV (80-100) fL MCH (26-34) PG MCHC (30-36) % RDW (11.6-14.8) % Plt Count (150-400) X10^3/uL Neut % (Auto) (50-75) % Lymph % (Auto) (25-40) % [place] % (Auto) (3-14) % Eos % (Auto) (2-4) % Baso % (Auto) (0-2) % Neut # (Auto) (1296-5638) /uL Lymph # (Auto) (4104-8565) /uL [place] # (Auto) (0-900) /uL Eos # (Auto) (0-450) /uL Baso # (Auto) (0-100) /uL PT (10.1-12.7) SECONDS INR (0.9-1.3) APTT (26.4-36.2) SECONDS Sodium (137-145) mmol/L Potassium (3.4-5.1) mmol/L Chloride (98-107) mmol/L Carbon Dioxide (22-32) mmol/L BUN (7-17) mg/dL Creatinine (0.52-1.04) mg/dL Estimated GFR (>60) mL/min BUN/Creatinine Ratio (6-22) Glucose (80-110) mg/dL Calcium (8.4-10.2) mg/dL Urine RBC None seen (0-5/HPF) Urine WBC 1-5/hpf (0-5/HPF) Ur Squamous Epith Cells 0-1 /hpf (0-5/HPF) Urine Bacteria Moderate (10-30) H (None) Ur Culture Indicated? Specimen cultured U Morph 300 ng/mL cutoff Negative (Negative) Ur Oxycodone Screen Negative (Negative) Urine Methadone Screen Negative (Negative) Ur Barbiturates Screen Negative (Negative) U Tricyclic Antidepress Negative (Negative) Ur Phencyclidine Scrn Negative (Negative) Ur Amphetamines Screen Negative (Negative) U Methamphetamines Scrn Negative (Negative) Ur MDMA Scrn (Ecstasy) Negative (Negative) U Benzodiazepines Scrn Negative (Negative) Urine Cocaine Screen Negative (Negative) U Marijuana (THC) Screen Negative (Negative) Urine Dip Bedside Urine Glucose Negative Bedside Urine Bilirubin - Negative Bedside Urine Ketone - Negative Urine Specific [place] 1.010 Bedside Urine Occult Blood - Negative Bedside Urine Protein - Negative Bedside Urine Urobilinogen - Negative Bedside Urine Nitrite - Negative Bedside Urine Leukocytes + [address] scan - head: Radiologist's impression: [address] [id number] [address] Scan Report Signed Patient: Marian Luo EMR#: [id number] : 1Acct:[id number] Age/Sex: 79 / FDate of Service: 09/15/19 Loc: ED Accession Number: [id number] Procedure: CT head/brain wo con Ordering Provider: Yazmin Velasquez D.O. PROCEDURE: CT HEAD/BRAIN WO CON INDICATIONS: memory issues, foggy TECHNIQUE: Noncontrast 4.5 mm thick angled axial sections acquired from the foramen magnum to the vertex, with coronal and sagittal reformats. For radiation dose reduction, the following was used: automated exposure control, adjustment of mA and/or kV according to patient size. COMPARISON: None. FINDINGS: Image quality: Excellent. CSF spaces: Basal cisterns are patent. No extra-axial fluid collections. Ventricles are normal in size and shape. Brain: No midline shift. No intracranial masses or hemorrhage. Mcdaniels-white matter interface is normal. Mild periventricular hypodensity most consistent with chronic microvascular ischemic change. Skull and face: Calvarium and visualized facial bones are intact, without suspicious lesions. Sinuses: Visualized sinuses and mastoids are clear. IMPRESSION: No acute intracranial abnormality. Periventricular hypodensities most compatible with mild chronic microvascular ischemic change. Comment: Findings were discussed with Yazmin Velasquez at the time of dictation. Dictated by: Bert Clarke M.D. on 09/15/2019 at 15:21 Approved by: Bert Clarke M.D. on 09/15/2019 at 15:24 CTA head and neck: Radiologist's impression: [address] [id number] [address] Scan Report Signed Patient: Marian Luo EMR#: [id number] : 1Acct:[id number] Age/Sex: 79 / FDate of Service: 09/15/19 Loc: ED Accession Number: [id number] Procedure: CT angio head and neck Ordering Provider: Yazmin Velasquez D.O. PROCEDURE: CT ANGIO HEAD AND NECK INDICATIONS: memory/foggy issues TECHNIQUE: Pre-contrast 4.5 mm thick sections acquired from the foramen magnum to the vertex. After the administration of intravenous contrast, 1 mm thick sections acquired from the aortic arch through the [place]. Post-contrast 4.5 mm thick sections then re-acquired from the foramen magnum to the vertex. 3-dimensional knqumdd-ppllgrsax-xguposnqha (MIP) and/or volume rendering reformats were acquired of the central intracranial vasculature and neck separately. COMPARISON: [facility], CT, CT HEAD/BRAIN WO CON, 09/15/2019, 15:09. FINDINGS: Image quality: Excellent. BRAIN: CSF spaces: Ventricles are normal in size and shape. Basal cisterns are patent. No extra-axial fluid collections. Brain: No midline shift. No intracranial bleeds or masses. Mcdaniels-white matter interface appears intact. Skull and face: Calvarium and facial bones appear intact, without suspicious lesions. Orbits appear normal. Sinuses: Sinuses and mastoids are clear. HEAD CT ANGIOGRAPHY: Anterior circulation: Intracranial internal carotid arteries are normal in size and flow. The flow within the paired anterior cerebral arteries is normal and symmetric. The flow within the middle cerebral arteries is normal and symmetric. The anterior communicating artery is seen. No aneurysms are seen. Posterior circulation: Visualized portions of the vertebral arteries demonstrate normal caliber, and join to form a normal appearing basilar artery. Flow within the posterior cerebral arteries is normal and symmetric. No aneurysms are seen. NECK CT ANGIOGRAPHY: Carotid system: The great vessels demonstrate a conventional anatomy as they arise from the aortic arch. The origins of the common carotid arteries appear patent. The common carotid arteries demonstrate normal caliber and courses. The bifurcation regions are both widely patent. The internal carotid arteries demonstrate normal calibers and courses. Posterior circulation: The origins of the vertebral arteries both appear widely patent. The more superior extracranial portions of both vertebral arteries also demonstrate normal courses and calibers. They join to form a normal appearing basilar artery. Soft tissues: Visualized neck soft tissues demonstrate no suspicious abnormalities. Bones: No suspicious bony lesions. Visualized cervical spine appears normally aligned. IMPRESSION: No area of vascular dissection or occlusion is found, no aneurysm is identified. No area of brain parenchymal edema/ischemic injury is found. Any quantitative measurements of stenosis were performed using NASCET criteria. Dictated by: Cole Javed M.D. on 09/15/2019 at 16:46 Approved by: Cole Javed M.D. on 09/15/2019 at 16:48 ECG Data Attestation: I personally reviewed and interpreted this ECG as follows: Prior ECG tracings: available for review Interpretation: Sinus rhythm rate a 60 P are 169 QRS of 92 and QTC of 419. No ST elevation or depression. Patient has prior from 06/05/2018 [facility] Narrative Medical decision making narrative: Patient's urine is positive for leukocytes, no nitrates. Microscopy shows some white cells. Sent for culture. Head CT and CTA is negative. patient's labs do not show any major abnormalities, coags are negative, electrolytes are normal BUN of 20, creatinine is 0.8 with a glucose of 137. Discussed with patient NIH is 0. Patient's description of symptoms are more very short term plan for very short term tasks although she is able to perform typical daily tasks without any issue. Discussed with patient this could be possibly related to UTI although very well could not be. Plan to treat with cephalexin. Patient was offered observation as we cannot completely rule out other causes. She defers and will follow up with primary care. Discharge Plan Departure Patient Disposition: Home Clinical Impression: Memory problem, Bacteriuria Discharge Date/Time: 09/15/19 17:35 Activity Restrictions/Additional Instructions: Follow-up with Dr. Mace, call tomorrow for an appointment to follow up in the next 1 or 2 days. I would recommend continuing aspirin 324 mg once daily until seen by Dr. Mace Take antibiotics until they are gone. Return to the emergency department for fevers greater 100.4 F, new changes to mental status, slurred speech, facial droop, new weakness, numbness or difficulty using her extremities or other new or concerning symptoms. Prescriptions: New cephalexin [Keflex] 500 mg capsule 500 mg PO BID Qty: 10 RF: 0 No Action simvastatin 20 mg tablet 20 mg PO QPM RF: 0 raloxifene 60 mg tablet 60 mg PO DAILY RF: 0 cholecalciferol (vitamin D3) [Vitamin D3] 1,000 unit Capsule 1,000 unit PO DAILY RF: 0 Calcium Source 1,500 mg PO DAILY RF: 0 Referrals: Eric Mace MD [Primary Care Provider] -
[2019-09-15 15:17] VITALS: BP 153/68; PULSE 64; RESP 17; O2SAT 99
[2019-09-15 15:33] LABS: Add Manual Diff / Slide Review NO; Basophils Absolute Auto 0 /uL (0-100); Basophils Percent Auto 0.6 % (0-2); Eosinophils Absolute Auto 200 /uL (0-450); Eosinophils Percent Auto 3.1 % (2-4); Hemoglobin 12.7 g/dL (12.0-16.0); Lymphocytes Absolute Auto 1200 /uL (1100-4500); Lymphocytes Percent Auto 17.1 % (25-40); Mean Corpuscular HGB Conc 34.5 % (30-36); Mean Corpuscular Hemoglobin 32.3 PG (26-34); Mean Corpuscular Volume 93.5 fL (80-100); Monocytes Absolute Auto 500 /uL (0-900); Monocytes Percent Auto 6.7 % (3-14); Neutrophils Absolute Auto 5100 /uL (1500-7000); Neutrophils Percent Auto 72.5 % (50-75); Platelet Count 254 X10^3/uL (150-400); Red Blood Cell Count 3.95 X10^6/uL (4.0-5.2); Red Cell Distribution Width 13.4 % (11.6-14.8)
[2019-09-15 15:37] LABS: Prothrombin Time 10.9 SECONDS (10.1-12.7)
[2019-09-15 15:40] LABS: PTT Partial Thromboplastin Tim 29 SECONDS (26.4-36.2)
[2019-09-15 15:43] LABS: Blood Urea Nitrogen 20 mg/dL (7-17); Calcium 9.1 mg/dL (8.4-10.2); Carbon Dioxide 27 mmol/L (22-32); Chloride 104 mmol/L (98-107); Estimated Glomerular Filt Rate > 60.0 mL/min (>60); Glucose 137 mg/dL (80-110); HEMOLYSIS < 15 (0-50); Potassium 3.8 mmol/L (3.4-5.1); Sodium 141 mmol/L (137-145)
--- NOTE | 2019-09-15 15:54 | DI.CT.S_ITS ---
PROCEDURE: CT ANGIO HEAD AND NECK INDICATIONS: memory/foggy issues TECHNIQUE: Pre-contrast 4.5 mm thick sections acquired from the foramen magnum to the vertex. After the administration of intravenous contrast, 1 mm thick sections acquired from the aortic arch through the [place]. Post-contrast 4.5 mm thick sections then re-acquired from the foramen magnum to the vertex. 3-dimensional gyvwjfw-cptykonuu-ognqwyqkzs (MIP) and/or volume rendering reformats were acquired of the central intracranial vasculature and neck separately. COMPARISON: [facility], CT, CT HEAD/BRAIN WO CON, 09/15/2019, 15:09. FINDINGS: Image quality: Excellent. BRAIN: CSF spaces: Ventricles are normal in size and shape. Basal cisterns are patent. No extra-axial fluid collections. Brain: No midline shift. No intracranial bleeds or masses. Mcdaniels-white matter interface appears intact. Skull and face: Calvarium and facial bones appear intact, without suspicious lesions. Orbits appear normal. Sinuses: Sinuses and mastoids are clear. HEAD CT ANGIOGRAPHY: Anterior circulation: Intracranial internal carotid arteries are normal in size and flow. The flow within the paired anterior cerebral arteries is normal and symmetric. The flow within the middle cerebral arteries is normal and symmetric. The anterior communicating artery is seen. No aneurysms are seen. Posterior circulation: Visualized portions of the vertebral arteries demonstrate normal caliber, and join to form a normal appearing basilar artery. Flow within the posterior cerebral arteries is normal and symmetric. No aneurysms are seen. NECK CT ANGIOGRAPHY: Carotid system: The great vessels demonstrate a conventional anatomy as they arise from the aortic arch. The origins of the common carotid arteries appear patent. The common carotid arteries demonstrate normal caliber and courses. The bifurcation regions are both widely patent. The internal carotid arteries demonstrate normal calibers and courses. Posterior circulation: The origins of the vertebral arteries both appear widely patent. The more superior extracranial portions of both vertebral arteries also demonstrate normal courses and calibers. They join to form a normal appearing basilar artery. Soft tissues: Visualized neck soft tissues demonstrate no suspicious abnormalities. Bones: No suspicious bony lesions. Visualized cervical spine appears normally aligned. IMPRESSION: No area of vascular dissection or occlusion is found, no aneurysm is identified. No area of brain parenchymal edema/ischemic injury is found. Any quantitative measurements of stenosis were performed using NASCET criteria. Dictated by: Cole Javed M.D. on 09/15/2019 at 16:46 Approved by: Cole Javed M.D. on 09/15/2019 at 16:48
[2019-09-15 16:00] VITALS: BP 148/65; PULSE 58; RESP 13; O2SAT 98
[2019-09-15 16:12] LABS: UR Morphine/Opiate cutoff 300 Negative (Negative); Ur Creatinine Normal (Normal); Ur Specific Gravity Normal (Normal); Urine Amphetamines Negative (Negative); Urine Barbiturates Negative (Negative); Urine Benzodiazepines Negative (Negative); Urine Cocaine Negative (Negative); Urine MDMA Negative (Negative); Urine Methadone Negative (Negative); Urine Methamphetamines Negative (Negative); Urine Oxycodone Negative (Negative); Urine Phencyclidine Negative (Negative); Urine Tetrahydrocannabinol Negative (Negative); Urine Tricyclic Antidepressant Negative (Negative); Urine pH Normal (Normal)
[2019-09-15 16:27] LABS: RBC Urine None Seen (0-5/HPF)
[2019-09-15] MEDS: ASPIRIN 81 MG CHEW TAB 324 MG PO (16:29)
[2019-09-15] MEDS: SODIUM CHLORIDE 0.9% 1,000 ML 150 ML IV (16:29)
[2019-09-15 16:30] VITALS: BP 165/76; PULSE 54; RESP 19
[2019-09-15 16:34] LABS: Bacteria Urine Moderate (10-30); Culture Indicated Urine Specimen Cultured; Squamous Epithelial Cell Urine 0-1 /HPF (0-5/HPF); WBC Urine 1-5/HPF (0-5/HPF)
[2019-09-15 17:00] VITALS: BP 171/80; PULSE 53; RESP 19; O2SAT 96
== END 2019-09-15 17:35 | disposition home or self-care (01) ==
PROVIDERS: Emergency Provider Emergency Medicine; PCP Internal Medicine
DX: R41.3 Other amnesia (principal); R82.71 Bacteriuria; R03.0 Elevated blood-pressure reading, without diagnosis of hypertension
CPT/HCPCS: 36415; 70450; 70496; 70498; 71045; 80048; 80305; 81003; 81015; 85025; 85610; 85730; 87077; 87086; 87186; 93005; 93010; 99285

== ENCOUNTER → 2019-10-28 15:04 | Outpatient (ROUT) | payer MEDICARE, OTHER, SELFPAY ==
[2018-06-03 18:27] VITALS: BMI 24.9
[2019-10-28 15:23] LABS: Aspartate Aminotransferase 31 IU/L (14-36); BUN Creatinine Ratio 25.7 (6-22); Blood Urea Nitrogen 18 mg/dL (7-17); Calcium 9.6 mg/dL (8.4-10.2); Carbon Dioxide 27 mmol/L (22-32); Chloride 97 mmol/L (98-107); Cholesterol 172 mg/dL (140-199); Estimated Glomerular Filt Rate > 60.0 mL/min (>60); Glucose 87 mg/dL (80-110); HDL Cholesterol 52 mg/dL (40-60); HEMOLYSIS < 15 (0-50); LDL Cholesterol Calculated 92 mg/dL (<100); Potassium 4.6 mmol/L (3.4-5.1); Sodium 134 mmol/L (137-145); Triglycerides 138 mg/dL (35-150)
== END ==
PROVIDERS: PCP Internal Medicine; Visit Provider Internal Medicine
DX: I10 Essential (primary) hypertension (principal); E78.2 Mixed hyperlipidemia
CPT/HCPCS: 80048; 80061; 84450

== ENCOUNTER → 2020-06-01 10:07 | Outpatient (CLI) | payer MEDICARE, OTHER, SELFPAY ==
[2018-06-03 18:27] VITALS: BMI 24.9
--- NOTE | 2020-06-01 10:28 | DI.MG.S_ITS ---
Patient Name: EALRINE ZHANG date: 1940 Sex: F Attending Physician: Rodri Indications: Date: 06/01/2020 10:17 At the request of: KOSTA GARCIA Procedure: MM screening mammo BI BILATERAL DIGITAL SCREENING MAMMOGRAM 3D/2D WITH CAD POST LUMPECTOMY: 06/01/2020 CLINICAL: Routine screening. Personal history of left breast cancer. Family history of breast cancer. Comparison is made to exams dated: 03/17/2019 mammogram, 01/24/2018 mammogram, and 12/17/2016 mammogram - [facility]. There are scattered fibroglandular elements in both breasts. Current study was also evaluated with a Computer Aided Detection (CAD) system. There are benign post operative findings in the left breast. No significant masses, calcifications, or other findings are seen in either breast. There has been no significant interval change. IMPRESSION: BENIGN There is no mammographic evidence of malignancy. A 1 year screening mammogram is recommended. This exam was interpreted at Station ID: [id number]. NOTE: For mammograms, a report in lay terms will be sent to the patient. Approximately 15% of breast malignancies will not be visualized mammographically. In the management of a palpable breast mass, a negative mammogram must not discourage biopsy of a clinically suspicious lesion. Electronically Signed By: Osvaldo schaeffer/bailee:06/01/2020 11:52:33 letter sent: Normal Exam ACR BI-RADS Category 2: Benign Finding(s) 3342F
== END ==
PROVIDERS: PCP Internal Medicine; Referring Provider Internal Medicine; Visit Provider Internal Medicine
DX: Z12.31 Encounter for screening mammogram for malignant neoplasm of breast (principal); Z85.3 Personal history of malignant neoplasm of breast; Z80.3 Family history of malignant neoplasm of breast
CPT/HCPCS: 77063; 77067

== ENCOUNTER → 2020-12-05 08:41 | Outpatient (CLI) | payer MEDICARE, OTHER, SELFPAY ==
[2018-06-03 18:27] VITALS: BMI 24.9
[2020-12-05 10:53] LABS: BUN Creatinine Ratio 26.2 (6-22); Blood Urea Nitrogen 27 mg/dL (7-17); Calcium 9.5 mg/dL (8.4-10.2); Carbon Dioxide 27 mmol/L (22-32); Chloride 102 mmol/L (98-107); Estimated Glomerular Filt Rate 51.7 mL/min (>60); Glucose 118 mg/dL (80-110); HEMOLYSIS < 15 (0-50); Potassium 3.9 mmol/L (3.4-5.1); Sodium 136 mmol/L (137-145)
== END ==
PROVIDERS: PCP Internal Medicine; Referring Provider Internal Medicine; Visit Provider Internal Medicine
DX: I10 Essential (primary) hypertension (principal)
CPT/HCPCS: 36415; 80048

== ENCOUNTER → 2022-01-31 15:46 | Outpatient (CLI) | payer MEDICARE, OTHER, SELFPAY ==
[2018-06-03 18:27] VITALS: BMI 24.9
[2022-01-31 16:20] LABS: Hematocrit 34.5 % (36-46); Hemoglobin 11.9 g/dL (12.0-16.0); Mean Corpuscular HGB Conc 34.3 % (30-36); Mean Corpuscular Hemoglobin 32.2 PG (26-34); Mean Corpuscular Volume 93.6 fL (80-100); Platelet Count 266 X10^3/uL (150-400); Red Blood Cell Count 3.69 X10^6/uL (4.0-5.2); Red Cell Distribution Width 12.4 % (11.6-14.8); White Blood Cell Count 5.7 X10^3/uL (4.5-11.0)
[2022-01-31 16:41] LABS: Alanine Aminotransferase 17 IU/L (<35); Albumin 4.5 g/dL (3.5-5.0); Albumin Globulin Ratio 1.5 (1.0-2.8); Alkaline Phosphatase 62 U/L (38-126); Aspartate Aminotransferase 33 IU/L (14-36); BUN Creatinine Ratio 23.4 (6-22); Bilirubin Total 0.4 mg/dL (0.2-1.3); Blood Urea Nitrogen 26 mg/dL (7-17); Calcium 8.8 mg/dL (8.4-10.2); Carbon Dioxide 25 mmol/L (22-32); Chloride 99 mmol/L (98-107); Cholesterol 197 mg/dL (140-199); Estimated Glomerular Filt Rate 50 mL/min (>60); Glucose 96 mg/dL (80-110); HDL Cholesterol 56 mg/dL (40-60); HEMOLYSIS < 15 (0-50); LDL Cholesterol Calculated 102 mg/dL (<100); Potassium 4.1 mmol/L (3.4-5.1); Sodium 136 mmol/L (137-145); Total Protein 7.5 g/dL (6.3-8.2); Triglycerides 193 mg/dL (35-150)
[2022-01-31 17:33] LABS: TSH w/ Reflex to FT4 2.25 uIU/mL (0.47-4.68)
== END ==
PROVIDERS: PCP Internal Medicine; Referring Provider Internal Medicine; Visit Provider Internal Medicine
DX: E78.2 Mixed hyperlipidemia (principal); I10 Essential (primary) hypertension; M85.80 Other specified disorders of bone density and structure, unspecified site; Z78.0 Asymptomatic menopausal state
CPT/HCPCS: 36415; 80053; 80061; 84443; 85027

== ENCOUNTER → 2022-11-01 11:38 | Outpatient (CLI) | payer MEDICARE, OTHER, SELFPAY ==
[2018-06-03 18:27] VITALS: BMI 24.9
--- NOTE | 2022-11-01 | DI.MG.S_ITS ---
BILATERAL DIGITAL SCREENING MAMMOGRAM 3D/2D WITH CAD: 11/01/2022 CLINICAL: Routine screening. Personal history of left breast cancer. Family history of breast cancer. Comparison is made to exams dated: 06/01/2020 mammogram, 03/17/2019 mammogram, and 01/24/2018 mammogram - [facility]. There are scattered areas of fibroglandular density in both breasts (category b / 25%-50% glandular tissue). Current study was also evaluated with a Computer Aided Detection (CAD) system. There are benign post operative findings in the left breast. No significant masses, calcifications, or other findings are seen in either breast. There has been no significant interval change. IMPRESSION: BENIGN There is no mammographic evidence of malignancy. A 1 year screening mammogram is recommended. This exam was interpreted at Station ID: [id number]. NOTE: For mammograms, a report in lay terms will be sent to the patient. Approximately 15% of breast malignancies will not be visualized mammographically. In the management of a palpable breast mass, a negative mammogram must not discourage biopsy of a clinically suspicious lesion. Electronically Signed By: Juanito orozco/bailee:11/01/2022 13:38:51 letter sent: Normal Exam ACR BI-RADS Category 2: Benign Finding(s) 3342F
== END ==
PROVIDERS: PCP Internal Medicine; Referring Provider Internal Medicine; Visit Provider Internal Medicine
DX: Z85.3 Personal history of malignant neoplasm of breast (principal); Z12.31 Encounter for screening mammogram for malignant neoplasm of breast; Z80.3 Family history of malignant neoplasm of breast; M85.851 Other specified disorders of bone density and structure, right thigh; Z78.0 Asymptomatic menopausal state
CPT/HCPCS: 77063; 77067; 77080

== ENCOUNTER → 2022-11-08 15:06 | Outpatient (CLI) | payer MEDICARE, OTHER, SELFPAY ==
[2018-06-03 18:27] VITALS: BMI 24.9
[2022-11-08 16:18] LABS: Hematocrit 32.8 % (36-46); Hemoglobin 11.4 g/dL (12.0-16.0); Mean Corpuscular HGB Conc 34.6 % (30-36); Mean Corpuscular Hemoglobin 32.3 PG (26-34); Mean Corpuscular Volume 93.1 fL (80-100); Platelet Count 257 X10^3/uL (150-400); Red Blood Cell Count 3.52 X10^6/uL (4.0-5.2); Red Cell Distribution Width 12.7 % (11.6-14.8); White Blood Cell Count 6.3 X10^3/uL (4.5-11.0)
[2022-11-08 16:32] LABS: Alanine Aminotransferase 19 IU/L (<35); Albumin 4.2 g/dL (3.5-5.0); Albumin Globulin Ratio 1.4 (1.0-2.8); Alkaline Phosphatase 67 U/L (38-126); Aspartate Aminotransferase 29 IU/L (14-36); BUN Creatinine Ratio 26.1 (6-22); Bilirubin Total 0.3 mg/dL (0.2-1.3); Blood Urea Nitrogen 30 mg/dL (7-17); Calcium 9.4 mg/dL (8.4-10.2); Carbon Dioxide 27 mmol/L (22-32); Chloride 102 mmol/L (98-107); Cholesterol 174 mg/dL (140-199); Estimated Glomerular Filt Rate 48 mL/min (>60); Globulin 2.9 g/dL (1.7-4.1); Glucose 83 mg/dL (80-110); HDL Cholesterol 55 mg/dL (40-60); HEMOLYSIS < 15 (0-50); LDL Cholesterol Calculated 79 mg/dL (<100); Potassium 4.7 mmol/L (3.4-5.1); Sodium 138 mmol/L (137-145); Total Protein 7.1 g/dL (6.3-8.2); Triglycerides 199 mg/dL (35-150)
== END ==
PROVIDERS: PCP Internal Medicine; Referring Provider Internal Medicine; Visit Provider Internal Medicine
DX: E78.2 Mixed hyperlipidemia (principal); I10 Essential (primary) hypertension
CPT/HCPCS: 36415; 80053; 80061; 85027

== ENCOUNTER → 2024-04-16 09:19 | Outpatient (CLI) | payer MEDICARE, OTHER, SELFPAY ==
[2018-06-03 18:27] VITALS: BMI 24.9
--- NOTE | 2024-04-16 09:20 | DI.MG.S_ITS ---
BILATERAL DIGITAL SCREENING MAMMOGRAM 3D/2D WITH CAD: 04/16/2024 CLINICAL: Routine screening. Personal history of left breast cancer. Comparison is made to exams dated: 11/01/2022 mammogram, 06/01/2020 mammogram, and 03/17/2019 mammogram - [facility]. There are scattered areas of fibroglandular density in both breasts (category b / 25%-50% glandular tissue). Current study was also evaluated with a Computer Aided Detection (CAD) system. There are benign post operative findings in the left breast. No significant masses, calcifications, or other findings are seen in either breast. There has been no significant interval change. IMPRESSION: BENIGN There is no mammographic evidence of malignancy. A 1 year screening mammogram is recommended. This exam was interpreted at Station ID: [id number]. NOTE: For mammograms, a report in lay terms will be sent to the patient. Approximately 15% of breast malignancies will not be visualized mammographically. In the management of a palpable breast mass, a negative mammogram must not discourage biopsy of a clinically suspicious lesion. Electronically Signed By: Remy castillo/bailee:04/16/2024 12:07:09 letter sent: Normal Exam ACR BI-RADS Category 2: Benign Finding(s) 3342F
== END ==
LOC: MAMMO 09:20
PROVIDERS: PCP Internal Medicine; Referring Provider Internal Medicine; Visit Provider Internal Medicine
DX: Z12.31 Encounter for screening mammogram for malignant neoplasm of breast (principal); Z85.3 Personal history of malignant neoplasm of breast; R92.323 Mammographic fibroglandular density, bilateral breasts
CPT/HCPCS: 77063; 77067

== ENCOUNTER → 2024-12-07 13:48 | Outpatient (CLI) | payer MEDICARE, OTHER, SELFPAY ==
[2018-06-03 18:27] VITALS: BMI 24.9
[2024-12-07 15:45] LABS: Hematocrit 35.8 % (36-46); Hemoglobin 12.3 g/dL (12.0-16.0); Mean Corpuscular HGB Conc 34.5 % (30-36); Mean Corpuscular Hemoglobin 32.4 PG (26-34); Mean Corpuscular Volume 94.1 fL (80-100); Platelet Count 273 X10^3/uL (150-400); Red Blood Cell Count 3.81 X10^6/uL (4.0-5.2); Red Cell Distribution Width 12.8 % (11.6-14.8); White Blood Cell Count 6.6 X10^3/uL (4.5-11.0)
[2024-12-07 16:05] LABS: Alanine Aminotransferase 18 IU/L (<35); Albumin 4.7 g/dL (3.5-5.0); Albumin Globulin Ratio 1.7 (1.0-2.8); Alkaline Phosphatase 74 U/L (38-126); Aspartate Aminotransferase 32 IU/L (14-36); BUN Creatinine Ratio 26.8 (6-22); Bilirubin Total 0.5 mg/dL (0.2-1.3); Blood Urea Nitrogen 30 mg/dL (7-17); Calcium 9.3 mg/dL (8.4-10.2); Carbon Dioxide 24 mmol/L (22-32); Chloride 99 mmol/L (98-107); Cholesterol 241 mg/dL (140-199); Estimated Glomerular Filt Rate 49 mL/min (>60); Globulin 2.8 g/dL (1.7-4.1); Glucose 77 mg/dL (80-110); HDL Cholesterol 54 mg/dL (40-60); HEMOLYSIS < 15 (0-50); LDL Cholesterol Calculated 150 mg/dL (<100); Potassium 4.2 mmol/L (3.4-5.1); Sodium 135 mmol/L (137-145); Total Protein 7.5 g/dL (6.3-8.2); Triglycerides 185 mg/dL (35-150)
[2024-12-07 16:33] LABS: TSH w/ Reflex to FT4 2.16 uIU/mL (0.47-4.68)
[2024-12-07 18:03] LABS: Creatinine Urine Random 51.53 mg/dL
[2024-12-07 18:10] LABS: Microalbumin Urine Random < 0.6 mg/dL (0-1.6)
== END ==
PROVIDERS: PCP Internal Medicine; Referring Provider Internal Medicine; Visit Provider Internal Medicine
DX: E78.2 Mixed hyperlipidemia (principal); I10 Essential (primary) hypertension; Z85.3 Personal history of malignant neoplasm of breast
CPT/HCPCS: 36415; 80053; 80061; 82043; 82570; 84443; 85027